=== PATIENT | male | born 1950 | race Caucasian/White ===

== ENCOUNTER → 2017-08-19 | Outpatient (CLI) | payer BC | LOC: GMAH 10:44 | PROVIDERS: ATTEND Family Medicine | DX: E78.2 Mixed hyperlipidemia (principal); E11.9 Type 2 diabetes mellitus without complications; Z12.5 Encounter for screening for malignant neoplasm of prostate ==

== ENCOUNTER 2017-10-28 16:05 | Emergency (ER) | payer BC ==
[2017-10-28 17:07] VITALS: BP 145/100; TEMP 99.3; O2SAT 97
== END 2017-10-28 16:50 | disposition left against medical advice (07) ==
LOC: ER 16:05
DX: Z53.21 Procedure and treatment not carried out due to patient leaving prior to being seen by health care provider (principal)

== ENCOUNTER → 2018-05-21 | Outpatient (CLI) | payer BC | LOC: GMAH 12:13 | PROVIDERS: ATTEND Family Medicine | DX: N40.0 Benign prostatic hyperplasia without lower urinary tract symptoms (principal) ==

== ENCOUNTER → 2019-03-12 | Outpatient (CLI) | payer BC | LOC: GMA MATASK 17:00 | PROVIDERS: ATTEND Family Medicine | DX: E34.9 Endocrine disorder, unspecified (principal); J01.80 Other acute sinusitis ==

== ENCOUNTER → 2019-05-07 | Outpatient (CLI) | payer BC ==
--- NOTE | 2019-05-07 11:52 | MRI ---
EXAM DESCRIPTION: Lumbar Spine w/o Contrast : Magnetic Resonance Imaging. CLINICAL HISTORY: RADICULOPATHY LUMBAR REGION COMPARISON: CT scan abdomen January 2016. TECHNIQUE: Multiplanar, multiple standard sequences, non contrast MRI, lumbar spine. FINDINGS: L5-S1: The disc is well visualized on axial T2 series 501, image 3. Desiccated disc with fluid posteriorly and hyperintense T2 annular fissure in the midline and left posterolateral margin. Grade 1 anterolisthesis of 4 mm. Posterior disc bulge into the midline and right of midline with minimal narrowing of the right subarticular recess. Bilateral hypertrophic facet arthrosis and thickening of the flavum ligaments. Bilateral deformities of the L5 pars and irregularities most likely spondylolysis. Moderate left foraminal narrowing and severe right foraminal narrowing. L4-5 disc desiccation and disc space loss. Posterior broad-based bulge abutting the bilateral L5 nerves above the subarticular recesses. Bilateral ligament thickening and mild facet arthrosis. AP canal diameter 11 mm. Disc protrusion 8 mm into the left foramen, disc 11 mm width, resulting in left foraminal stenosis and compromise of the left L4 nerve. Moderate narrowing of the right foramen. L3-L4: Disc space maintained with disc desiccation and posterior broad-based bulge abutting the thecal sac. Bilateral minimal facet hypertrophic arthrosis and ligament thickening with AP canal diameter 10 mm. Bilateral mild foraminal narrowing. L2-L3: Disc desiccation with disc space maintained. No disc bulging. Thickening of the posterior ligaments with AP canal diameter 12 mm. Bilateral foramina are patent. L1-2: Disc desiccation with minimal anterior bulge, small left posterior bulge. Minimal anterior endplate reactive changes. Posterior elements unremarkable. Canal and foramina are patent. T12-L1: Disc desiccation with minimal anterior bulge. No posterior bulge. Anterior spondylosis. Posterior elements unremarkable. Canal and foramina are patent. Conus terminates at the mid T12 vertebral body level. No scoliosis. Paravertebral soft tissues negative.. Distal cord normal signal and caliber. Otherwise normal marrow signal in the remaining vertebral bodies and the posterior elements. Vertebral bodies are not compressed at any level. IMPRESSION: 1. Grade 1 anterolisthesis at L5-S1 with bulging disc to the right of midline and annular fissure to the left of midline. Minimal narrowing of the right subarticular recess. Severe right foraminal narrowing and moderate left foraminal narrowing. 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 This can be confirmed with lumbar spine oblique radiographs or CT scan. 2. L4-L5 disc desiccation with left intraforaminal herniation resulting in left foraminal stenosis and impingement of the left L4 nerve. Moderate narrowing of the right foramen. Posterior disc bulge abutting the bilateral L5 nerves above the subarticular recesses. 3. Multifactorial mild central canal stenosis L3-L4. Electronically signed by: Trever Pires MD 05/07/2019 11:50 AM CDT
== END ==
LOC: MRI 07:49
PROVIDERS: ATTEND Family Medicine
DX: M51.17 Intervertebral disc disorders with radiculopathy, lumbosacral region (principal); M51.16 Intervertebral disc disorders with radiculopathy, lumbar region; M43.17 Spondylolisthesis, lumbosacral region; M48.062 Spinal stenosis, lumbar region with neurogenic claudication

== ENCOUNTER → 2019-06-02 | Outpatient (CLI) | payer BC | LOC: GMA MATASK 10:18 | PROVIDERS: ATTEND Family Medicine | DX: E34.9 Endocrine disorder, unspecified (principal); E11.9 Type 2 diabetes mellitus without complications ==

== ENCOUNTER → 2020-02-01 | Outpatient (CLI) | payer BC ==
--- NOTE | 2020-02-02 08:07 | MRI ---
EXAM DESCRIPTION: MRI right shoulder CLINICAL HISTORY: Right shoulder pain. Inability to raise the arm above the head COMPARISON: None. TECHNIQUE: Multiplanar, multisequence MR images of the right shoulder FINDINGS: Severe acromioclavicular osteoarthritis with prominent osteophytes indenting the supraspinatus. Joint effusion. Anterior lateral downsloping of the acromion with subacromial enthesophyte and contiguous inferior lateral acromial spur Supraspinatus tendinosis with interstitial and bursal insertional partial tear of the mid posterior tendon. No tendon retraction. Muscle volume mildly decreased with grade 1 fatty infiltration Partial articular and interstitial insertional tear of the mid to posterior infraspinatus tendon. Additional partial interstitial tear at the myotendinous junction posteriorly. Edema tracks medially along the myotendinous junction. No measurable tendon retraction. Mild muscle volume loss and grade 2 fatty infiltration. Teres minor tendon intact. Mild muscle volume loss and grade 2 fatty infiltration. Subscapularis partial interstitial tear at the insertion. Muscle volume moderately decreased with grade 2 fatty infiltration. Associated long head biceps tendon subluxation over the lesser tuberosity. Biceps tendinosis along the mid to upper bicipital groove and intra-articular extending up to the labral anchor. No labral anchor detachment. Degenerative superior labrum with blunted frayed superior posterior superior labrum. No acute labral detachment No full-thickness glenohumeral chondrosis or chronic osteochondral lesion. Small joint effusion. Subacromial subdeltoid bursal fluid and mild synovitis anteriorly IMPRESSION: Severe acromioclavicular osteoarthritis Moderate grade partial thickness interstitial and bursal surface tear of the supraspinatus tendon. High-grade partial articular and interstitial tear of the infraspinatus tendon Moderate grade insertional tear of the subscapularis tendon with associated long head biceps tendon subluxation and tendinosis Electronically signed by: Jorge Lowery MD 02/02/2020 8:05 AM CDT
== END ==
LOC: MRI 13:26
PROVIDERS: ATTEND Family Medicine
DX: M75.101 Unspecified rotator cuff tear or rupture of right shoulder, not specified as traumatic (principal); S46.191A Other injury of muscle, fascia and tendon of long head of biceps, right arm, initial encounter; M19.011 Primary osteoarthritis, right shoulder; M75.91 Shoulder lesion, unspecified, right shoulder

== ENCOUNTER → 2020-05-25 | Outpatient (CLI) | payer MEDICARE ==
--- NOTE | 2020-05-26 11:15 | MRI ---
EXAM DESCRIPTION: Lumbar Spine w/o Contrast : Magnetic Resonance Imaging. CLINICAL HISTORY: radiculopathy COMPARISON: Lumbar MRI noncontrast April 2019. TECHNIQUE: Multiplanar, multiple standard sequences, non contrast MRI, lumbar spine. FINDINGS: L5-S1: The disc is well visualized on axial T2 series 501, image 3. This desiccation posterior midline bulge also bulging into the right subarticular recess abutting the right S1 nerve. Disc bulge 4 mm. 7 mm grade 1 anterolisthesis and bilateral L5 pars interarticularis defects stable. Hypertrophic changes in the facet joints and posterior flavum ligaments (canal elements). AP canal diameter 12 mm. Stable annular fissure in the posterior disc margin and left intraforaminal margin. Disc and facet joint encroachment on the foramina with bilateral stenosis. No change from the prior study. Circumscribed hyperintense T1 and T2 hemangioma superior right L5 vertebral body unchanged. L4-L5: Disc desiccation and minimal disc space loss. Anterior bulging. Posterior midline bulge 4 mm. Hypertrophic changes in the canal elements. AP canal diameter 11 mm. Disc osteophyte encroachment on the left foramen with stenosis stable since the prior study. Right mild foraminal narrowing unchanged. Circumscribed hyperintense T1 and T2 hemangioma left side of L4 vertebral body no interval change. L3-L4: Disc desiccation with disc space maintained. Minimal anterior bulging and endplate ridging. Posterior broad-based bulging 4 mm. Annular fissure in the posterior bulging segment stable. Hypertrophic changes in the canal elements. AP canal diameter 9 mm, more narrow since the prior study. Mild bilateral foraminal narrowing stable. L2-L3: Disc desiccation with disc space maintained. Mild hypertrophic changes in the canal elements. AP canal diameter 11 mm. Bilateral foramina are patent. No interval change from the prior study. L1-L2: Minimal disc desiccation minimal anterior bulging and mild anterior endplate reactive changes and endplate ridging. No posterior bulging. Canal elements unremarkable. Canal and foramina are patent. Stable since the prior study. T12-L1: Disc desiccation with anterior bulging and mild endplate reactive changes. No posterior bulge. Canal elements are unremarkable. Canal and foramina are patent. No change from the prior study. Conus terminates just above the disc space. T11-T12 disc is negative and no canal or foraminal stenosis. No significant scoliosis. Paravertebral soft tissues minimal paraspinal muscle fatty atrophy.. Distal cord normal signal and caliber. Normal marrow signal in the remainder of the vertebral bodies and the posterior elements. Vertebral bodies are not compressed at any level. IMPRESSION: 1. Multiple levels of disc desiccation and bulging. Multiple levels of posterior flavum ligament hypertrophy and hypertrophic arthrosis of the facet joints. 2. Left intraforaminal disc osteophyte complex encroachment at L4-L5 with stenosis and no interval change since prior study. 3. Bilateral intraforaminal stenosis caused by disc bulge and facet hypertrophy at L5-S1 is stable. 4. Multifactorial mild central canal stenosis at L3-L4 has increased since the prior study. Stable annular fissure in the posterior disc margin. 5. Please refer to FINDINGS for discussion no specific results at other disc space levels. Electronically signed by: Trever Pires MD 05/26/2020 11:13 AM [facility]
== END ==
LOC: MRI 11:03
PROVIDERS: ATTEND Orthopaedic Surgery Orthopaedic Surgery of the Spine
DX: M51.16 Intervertebral disc disorders with radiculopathy, lumbar region (principal); M51.17 Intervertebral disc disorders with radiculopathy, lumbosacral region; M47.26 Other spondylosis with radiculopathy, lumbar region; M48.062 Spinal stenosis, lumbar region with neurogenic claudication; M24.28 Disorder of ligament, vertebrae; M43.00 Spondylolysis, site unspecified; M54.2 Cervicalgia; M75.100 Unspecified rotator cuff tear or rupture of unspecified shoulder, not specified as traumatic